=== PATIENT | male | born 1980 | race Caucasian/White ===

== ENCOUNTER 2017-10-26 08:09 | Emergency (ER) | payer OTHER ==
[~2017-10-26] VITALS: Ht 188 cm; Wt 92.4 kg
[2017-10-26 08:12] VITALS: BP 174/86
[2017-10-26] MEDS ORDERED: AZITHROMYCIN 500 MG TABLET PO ONE (08:30)
[2017-10-26] MEDS ORDERED: CEFTRIAXONE 250 MG IM ONE (08:30)
[2017-10-26] MEDS ORDERED: CEFTRIAXONE 250 MG ONE (08:36)
[2017-10-26] MEDS ORDERED: AZITHROMYCIN 250 MG TABLET ONE (08:37)
== END 2017-10-26 09:29 | disposition home or self-care (01) ==
LOC: ED 09:00
DX: Z20.2 Contact with and (suspected) exposure to infections with a predominantly sexual mode of transmission (principal)
CPT/HCPCS: 87491; 87591; 96372; 99284; J0696